=== PATIENT | female | born 1945 | race Caucasian/White ===

== ENCOUNTER → 2016-07-31 | Outpatient (CLI) | payer OTHER, MEDICAID ==
[~2016-07-31] MED LIST: IOPAMIDOL (ISOVUE-300) 100 ML BTL IV ONE
--- NOTE | 2016-07-31 18:29 | CT ---
CT Scan of Neck Soft Tissues (With Contrast Enhancement) at 1506 hours History: Right-sided neck mass palpable in the right submandibular region. Night sweats. Technique: Axial computed tomographic images of the neck soft tissues obtained from the sternoclavic ular joint to the skull base during the uneventful intravenous administration of 80 mL Isovue-300 con trast. Dose reduction techniques were utilized. Comparison: None. Findings: BB is placed over the region of palpable concern, which corresponds to the posterior aspec t of the right parotid gland. The right parotid gland appears normal in size, without evidence of ma sses or inflammatory changes. No adjacent masses, fluid collections, or significant adenopathy. Rig ht submandibular gland also appears normal, without masses or inflammatory changes. The left parotid gland is normal in size. However, along the superior aspect of the left parotid gla nd, there is a 9- x 5-mm hyperenhancing ovoid lesion, image #191 of series #3. Left submandibular gl and appears normal, without masses. In the right lobe of the thyroid, there is a 6- x 4-mm probably benign nodule. No suspicious thyroid nodules noted. No further follow up of the thyroid is recommended. Mild atherosclerotic calcification of bilateral carotid bulbs, left worse than right, without flow-li miting stenosis. Jugular veins appear patent, without thrombosis. No significant neck adenopathy. Lung apices demonstrate centrilobular emphysema bilateral upper lobes, with pleuroparenchymal scarrin g bilateral lung apices and calcified granuloma right upper lobe. Moderate degenerative disk disease cervical spine, with disk space narrowing and osteophytes, especia lly at C5-C6, C6-C7, and C7-T1, with minimal anterolisthesis at C3-C4, C4-C5, C5-C6, and multilevel m oderate bilateral facet arthropathy, resulting in mild to moderate central canal stenosis, most promi nent at C5-C6 and C6-C7, and mild to moderate bilateral neural foraminal stenosis, worse at C5-C6. Impressions 1. Palpable right neck abnormality corresponds to a normal-appearing right parotid gland. No eviden ce of right parotid or right submandibular mass. 2. However, in the left parotid gland, there is a superficial lobe 9- x 5-mm enhancing lesion, which may represent a pleomorphic adenoma or early malignant neoplasm. Consider MRI of the neck soft tiss ues, surgical biopsy, or follow up. 3. Bilateral lung apex centrilobular emphysema, with pleuroparenchymal scarring, right worse than le ft. 4. Mild atherosclerotic carotid bulbs, left worse than right, without flow-limiting stenosis. 5. No significant neck adenopathy. A Follow-Up Required message has been communicated to MEEK YOO via the [employer] al Result system on 07/31/2016 18:03, Message ID [id number].
== END ==
LOC: CIMAGING 14:13
PROVIDERS: ATTEND Specialist
DX: K11.9 Disease of salivary gland, unspecified (principal); J43.2 Centrilobular emphysema; M50.322 Other cervical disc degeneration at C5-C6 level; M50.323 Other cervical disc degeneration at C6-C7 level; M50.33 Other cervical disc degeneration, cervicothoracic region; M02.88 Other reactive arthropathies, vertebrae; M48.02 Spinal stenosis, cervical region; M99.71 Connective tissue and disc stenosis of intervertebral foramina of cervical region; R21 Rash and other nonspecific skin eruption
CPT/HCPCS: 70491; Q9967; 80053-PO; 85025-PO

== ENCOUNTER → 2016-08-17 | Outpatient (CLI) | payer OTHER, MEDICAID ==
[~2016-08-17] MED LIST changes: +GADOBUTROL 10 ML VIAL IVP ONE; -IOPAMIDOL (ISOVUE-300) 100 ML BTL IV ONE
--- NOTE | 2016-08-17 16:47 | MR ---
MRI of the face, without and with contrast. Today. History: Left sided parotid mass. Additional characterization requested. Palpable fullness right paro tid gland noted on prior exam. Technique: Precontrast sagittal, axial, and coronal MR sequences of the face are obtained. After intr avenous administration of 5 mL Gadavist, postcontrast enhanced imaging is obtained in 3 planes. Comparison Study: CT of the face performed July 31, 2016. Findings: Within the left parietal lobe, there are 2 focal lesions identified. In the far superior aspect left frontal lobe, there is a smoothly marginated T2 hyperintense homogeneously enhancing lesion which cor responds to the lesion is identified on prior CT. This lesion measures 9 mm in maximum diameter. 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 More inferiorly within the left p arotid lobe, there is a T1 hypointense and T2 isointense round smooth lesion, best visualized on imag e 14 of series 5 and 6, with homogeneous mild enhancement similar to the parotid parenchyma. This les ion appears to have a focal hilum and is most suggestive of a intraparotid lymph node. Follow-up of t his lesion can BE obtained as clinically appropriate. The right parotid gland enhances normally without mass identified on T2-weighted imaging. No evidence of cervical lymphadenopathy. Visualized paranasal sinuses appear unremarkable. Impression: 1. 2 separate left parotid gland lesions, as above. The more superior lesion has imaging features sug gestive of pleomorphic adenoma. The more inferior lesion may represent an intraparotid lymph node. Im aging follow-up is suggested as clinically appropriate. 2. No evidence of right parotid gland mass. No evidence of cervical lymphadenopathy.
== END ==
LOC: FIMAGING 13:01
PROVIDERS: ATTEND Specialist
DX: K11.8 Other diseases of salivary glands (principal); R59.0 Localized enlarged lymph nodes
CPT/HCPCS: 70543; A9585

== ENCOUNTER → 2018-05-04 | Outpatient (CLI) | payer OTHER, MEDICAID | LOC: FIMAGING 11:44 | PROVIDERS: ATTEND Family Medicine | DX: Z13.820 Encounter for screening for osteoporosis (principal); Z78.0 Asymptomatic menopausal state; M81.0 Age-related osteoporosis without current pathological fracture; Z86.73 Personal history of transient ischemic attack (TIA), and cerebral infarction without residual deficits; G31.9 Degenerative disease of nervous system, unspecified; R90.82 White matter disease, unspecified ==